=== PATIENT | male | born 1995 | race Caucasian/White ===

== ENCOUNTER 2019-05-07 22:12 | Emergency (ER) | payer OTHER ==
--- NOTE | 2019-05-07 22:43 | ED ---
Lower Extremity - HPI Summary HPI Summary: Patient complains of right knee pain and swelling status post mechanical basketball injury today. Patient states history of prior ACL tear, with subsequent surgery. Patient states this feels exactly the same. Denies any other pain, injury or symptoms. Medical history is asthma. - History of Current Complaint Chief Complaint: EDExtremityLower Stated Complaint: R LEG PAIN PER PT Time Seen by Provider: 05/07/19 22:42 Hx Obtained From: Patient Mechanism Of Injury: Twisted Onset of Pain: Immediate Onset/Duration: Hours Severity Initially: Moderate Severity Currently: Moderate Pain Intensity: 4 Pain Scale Used: 0-10 Numeric Timing: Constant Location: Is Discrete @ Character Of Pain: Throbbing Associated Signs And Symptoms: Positive: Swelling Alleviating Factor(s): Rest, Elevation Able to Bear Weight: No - Allergies/Home Medications Allergies/Adverse Reactions: Allergies Allergy/AdvReac Type Severity Reaction Status Date / Time No Known Allergies Allergy Verified 05/07/19 22:13 PMH/Surg Hx/FS Hx/Imm Hx Endocrine/Hematology History: Denies: Hx Anticoagulant Therapy Cardiovascular History: Denies: Hx Pacemaker/ICD History: Denies: Hx Dialysis Sensory History: Denies: Hx Deafness Opthamlomology History: Denies: Hx Legally Blind EENT History: Denies: Hx Hearing Problem Neurological History: Denies: Hx Developmental Delay Infectious Disease History: No Infectious Disease History: Denies: Traveled Outside the [place] in Last 30 Days - Family History Known Family History: Positive: Non-Contributory - Social History Alcohol Use: Occasionally Hx Substance Use: No Hx Tobacco Use: No Review of Systems Constitutional: Negative Eyes: Negative ENT: Negative Cardiovascular: Negative Respiratory: Negative Gastrointestinal: Negative Genitourinary: Negative Musculoskeletal: Other Skin: Negative Neurological/Mental Status: Negative Psychological: Normal All Other Systems Reviewed And Are Negative: Yes Physical Exam - Summary Physical Exam Summary: No erythema, ecchymosis, deformity noted. Abrasions to right sided knee from prior fall. Pain with palpation along medial right knee. Swelling to medial aspect. PMS intact distally. Triage Information Reviewed: Yes Vital Signs On Initial Exam: Initial Vitals Temp Pulse Resp BP Pulse Ox 99.1 F 102 20 142/92 97 05/07/19 22:13 05/07/19 22:13 05/07/19 22:13 05/07/19 22:13 05/07/19 22:13 Vital Signs Reviewed: Yes Appearance: Positive: Well-Appearing Skin: Positive: Warm Head/Face: Positive: Normal Head/Face Inspection Eyes: Positive: Normal Neck: Positive: Supple Respiratory/Lung Sounds: Positive: Clear to Auscultation Cardiovascular: Positive: Normal Abdomen Description: Positive: Nontender Musculoskeletal: Positive: Normal Neurological: Positive: Normal Psychiatric: Positive: Normal AVPU Assessment: Alert - [place] Coma Scale Best Eye Response: 4 - Spontaneous Best Motor Response: 6 - Obeys Commands Best Verbal Response: 5 - Oriented Coma Scale Total: 15 Procedures - Sedation Patient Received Moderate/Deep Sedation with Procedure: No Diagnostics - Vital Signs Vital Signs Temp Pulse Resp BP Pulse Ox 05/07/19 22:13 99.1 F 102 20 142/92 97 - Laboratory Lab Statement: Any lab studies that have been ordered have been reviewed, and results considered in the medical decision making process. Lower Extremity Course/Dx - Course Course Of Treatment: Patient complains of right knee pain and swelling status post mechanical basketball injury today. Patient states history of prior ACL tear, with subsequent surgery. Patient states this feels exactly the same. Denies any other pain, injury or symptoms. Medical history is asthma. Vital signs within normal limits. Patient refused x-ray. Knee immobilizer and crutches provided for patient. Knee immobilizer applied by nurse. Follow-up with orthopedic. - Diagnoses Provider Diagnoses: Right knee injury Discharge ED - Sign-Out/Discharge Documenting (check all that apply): Patient Departure - Discharge Plan Condition: Stable Disposition: ADMITTED TO [facility] Patient Education Materials: Swollen Knee Joint (ED) Referrals: Josephine Lee MD [Medical Doctor] - Additional Instructions: Called clinic of orthopedics Dr. Lee tomorrow morning to arrange for further evaluation of right knee injury. No weightbearing until evaluated by orthopedics. Use brace and crutches until evaluated. Ibuprofen 600 mg every 6 hours. You may also add Tylenol in between at 3 hours. - Billing Disposition and Condition Condition: STABLE Disposition: Admitted to [facility]
[2019-05-08 00:54] VITALS: BP 142/90
== END 2019-05-07 23:10 | disposition short-term general hospital (02) ==
LOC: ED 22:12
DX: S89.91XA Unspecified injury of right lower leg, initial encounter (principal); X50.1XXA Overexertion from prolonged static or awkward postures, initial encounter; Y93.67 Activity, basketball; Y92.39 Other specified sports and athletic area as the place of occurrence of the external cause
CPT/HCPCS: 99282